=== PATIENT | male | born 1965 | race African-American/Black ===

== ENCOUNTER 2017-06-18 23:18 | Emergency (ER) | payer SELFPAY | END 2017-06-19 01:22 | disposition home or self-care (01) | LOC: ER 06-19 01:22 | DX: S86.912A Strain of unspecified muscle(s) and tendon(s) at lower leg level, left leg, initial encounter (principal); Z91.040 Latex allergy status; X58.XXXA Exposure to other specified factors, initial encounter; Y93.89 Activity, other specified; Y92.89 Other specified places as the place of occurrence of the external cause; Y99.8 Other external cause status | CPT/HCPCS: 93971; 99284-25 ==